=== PATIENT | male | born 1980 | race Caucasian/White ===

== ENCOUNTER 2016-12-31 00:17 | Emergency (ER) | payer MEDICAID ==
[~2016-12-31] VITALS: Ht 172.7 cm; Wt 73.5 kg
[~2016-12-31 00:17] MED LIST: CYCL-319 PO; HYDR-3498 PO; IBUP-1542 PO; IBUP800T25 PO; MAG-19 PO; OMEP20CA9 PO; ONDA4TAB35 PO
[2016-12-31 00:27] VITALS: Ht 172.7 cm; Wt 73.5 kg
[2016-12-31] MEDS ORDERED: FLUORESCEIN STRIP LEFT EYE ONE (04:00)
[2016-12-31] MEDS ORDERED: SODIUM CHLORIDE 0.9% 1L IRRIG IRR SCH (04:30)
[2016-12-31] MEDS ORDERED: VIGA LEFT EYE (05:07)
--- NOTE | 2016-12-31 05:07 | ERD ---
ER Documentation Chief Complaint Date/Time DATE: 12/31/16 TIME: 05:02 Chief Complaint LEFT EYE PAIN AND REDNESS HPI 36-year-old male presents to emergency department for complaints of left eye foreign body sensation redness itching and pain started today. Patient was painting, felt that of pain when inside the eye, was rubbing the left eye, described the pain as burning pain, 4/10 scale, worse upon opening closing the eye. Patient denies any vision changes. Patient denies any eye discharge. Patient denies any direct trauma in the eye. ROS All systems reviewed and are negative except as per history of present illness. Medications Home Meds Active Scripts Ondansetron Hcl* (Zofran* ODT) 4 mg -ODT Tab.disper, 4 MG PO Q8 Y for NAUSEA AND /OR VOMITING, #30 TAB Prov:EWA GARCÍA NP 01/10/16 Magaldrate/Simethicone* (Mylanta*) 355 Ml Susp, 30 ML PO QID Y for GASTROINTESTINAL UPSET, #1 BOTTLE Prov:EWA GARCÍA NP 01/10/16 Omeprazole* (Prilosec*) 20 Mg Capsule.dr, 20 MG PO DAILY, #30 CAP Prov:EWA GARCÍA NP 01/10/16 Cyclobenzaprine Hcl* (Cyclobenzaprine Hcl*) 10 Mg Tablet, 10 MG PO TID, #15 TAB Prov:SAL CID NP 12/14/15 Ibuprofen* (Motrin*) 800 Mg Tab, 800 MG PO Q6H Y for PAIN AND OR ELEVATED TEMP, #30 TAB Prov:SAL CID NP 12/14/15 Ibuprofen* (Motrin*) 800 Mg Tab, 800 MG PO Q6H Y for PAIN AND OR ELEVATED TEMP, #30 TAB Prov:TAYLER LEO MD 06/03/15 Hydrocodone Bit-Acetaminophen* (Aragon*) 5-325 Mg Tab, 1 TAB PO Q4H Y for PAIN, # 10 TAB Prov:JUANY VAZQUEZ PA-C 04/10/15 Ibuprofen* (Ibuprofen*) 600 Mg Tablet, 600 MG PO Q6 for PAIN, #30 TAB Prov:JUANY VAZQUEZ PA-C 04/10/15 Reported Medications [none] Unknown Strength No Conflict Check 01/10/16 Allergies Allergies: Coded Allergies: No Known Allergy (Unverified , 12/14/15) PMhx/Soc Medical and Surgical Hx: pt denies Medical Hx, pt denies Surgical Hx History of Surgery: No Anesthesia Reaction: No Hx Neurological Disorder: No Hx Respiratory Disorders: No Hx Cardiac Disorders: No Hx Psychiatric Problems: No Hx Miscellaneous Medical Probl: No Hx Alcohol Use: No (OOC) Hx Substance Use: No Hx Tobacco Use: No Smoking Status: Never smoker FmHx Family History: No coronary disease, No diabetes, No other Physical Exam Vitals Vital Signs Date Time Temp Pulse Resp B/P Pulse Ox O2 Delivery O2 Flow Rate FiO2 12/31/16 00:27 96.8 81 20 137/79 99 Physical Exam GENERAL: The patient is well developed and appropriate for usual state of health, in no apparent distress. HEENT: Atraumatic. Her eyes are PERRL EOM intact, left eye conjunctiva noted to be a erythematous, no eye discharge. Right eye conjunctiva is nonerythematous. Ears: Normal tympanic membrane, no erythema or bulging. No ear canal swelling. No ear discharge. Nose: normal nasal turbinates, no erythema or swelling. Normal nasal discharge. Throat: oropharynx clear. No tonsillar swelling or tonsillar exudates. No lymphadenopathy. CHEST: Clear to auscultation bilaterally. There are no rales, wheezes or rhonchi. HEART: Regular rate and rhythm. No murmurs, clicks, rubs or gallops. No S3 or S4. ABDOMEN: Soft, nontender and nondistended. Good bowel sounds. No rebound or guarding. No gross peritonitis. No gross organomegaly or masses. No Fang sign or McBurney point tenderness. BACK: No midline or flank tenderness. EXTREMITIES: Equal pulses bilaterally. There is no peripheral clubbing, cyanosis or edema. No focal swelling or erythema. Full range of motion. Grossly neurovascularly intact. NEURO: Alert and oriented. Cranial nerves 2-12 intact. Motor strength in all 4 extremities with 5/5 strength. Sensation grossly intact. Normal speech and gait. SKIN: There is no apparent rash or petechia. The skin is warm and dry. HEMATOLOGIC AND LYMPHATIC: There is no evidence of excessive bruising or lymphedema. No gross cervical, axillary, or inguinal lymphadenopathy. Results 24 hrs Current Medications Medications (Trade) Dose Ordered Sig/Ann Route PRN Reason Start Time Stop Time Status Last Admin Dose Admin Fluorescein Sodium (Jqpmu-O-Tdlpc) 1 strip ONCE ONCE LEFT EYE 12/31/16 04:00 12/31/16 04:01 DC Sodium Chloride (NS (Irrig)) 1,000 ml ONCE IRR 12/31/16 04:30 Procedure Note: After obtaining informed consent, the _left eye was stained using fluorescein dye. After staining the eye, A Wood's lamp was used to evaluate the eye. There is no foreign body noted in the eye. Noted corneal abrasion left eye. Patient tolerated procedure well. Can lens irrigation was then afterwards, after treatment, foreign body sensation has improved and resolved. Patient verbalizing much better. Visual acuity is normal for patient. Procedures/MDM Medical decision making: Patient's symptoms most likely consistent with corneal abrasion. No foreign body noted, Can lens was done to ensure that all possible foreign body is removed. No symptoms of any other eye emergencies, no herpes simplex virus, retinal detachment, acute closed angle glaucoma. Patient is advised to see occupancy specialist within 1-2 days for reevaluation of symptoms. Patient was given prescription for Vigamox ophthalmic solution, patient was advised to return to emergency department for vision changes, or any other worsening symptoms. Departure Diagnosis: Primary Impression: Corneal abrasion Encounter type: initial encounter Laterality: left Qualified Code: S05.02XA - Corneal abrasion, left, initial encounter Condition: Stable Patient Instructions: Corneal Abrasion Additional Instructions: See occupancy specialist within 1-2 days. Take medications as prescribed. EWA GARCÍA NP Dec 31, 2016 05:07
[2016-12-31 05:33] VITALS: BP 117/74; PULSE 77; RESP 17; TEMP 98.7
== END 2016-12-31 05:38 | disposition home or self-care (01) ==
LOC: FTE 00:17
DX: S05.02XA Injury of conjunctiva and corneal abrasion without foreign body, left eye, initial encounter (principal); X58.XXXA Exposure to other specified factors, initial encounter
CPT/HCPCS: A4217; Z7502; Z7610; 99284